=== PATIENT | female | born 1985 | race Caucasian/White ===

== ENCOUNTER 2021-05-06 23:31 | Emergency (ER) | payer MEDICAID, OTHER ==
[2021-05-06 23:35] VITALS: BP 143/83; PULSE 100
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
[2021-05-07] MEDS ORDERED: traMADol 50 MG Tab PO ONE (01:08)
== END 2021-05-07 01:10 | disposition home or self-care (01) ==
LOC: LL.ED 23:31
DX: S01.412A Laceration without foreign body of left cheek and temporomandibular area, initial encounter (principal); S63.502A Unspecified sprain of left wrist, initial encounter; I10 Essential (primary) hypertension; E66.9 Obesity, unspecified; Z88.8 Allergy status to other drugs, medicaments and biological substances; Z68.42 Body mass index [BMI] 45.0-49.9, adult; W18.39XA Other fall on same level, initial encounter
CPT/HCPCS: 12011; 36415; 70450; 73110; 84703; 99284; A9270; 99282

== ENCOUNTER 2021-06-02 01:45 | Emergency (ER) | payer MEDICAID ==
[2021-06-02 01:58] VITALS: BP 155/83; PULSE 118
[2021-06-02] MEDS ORDERED: Amoxicillin/Clavulanate K 875-125 MG Tab PO ONE (02:04)
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
--- NOTE | 2021-06-02 03:23 | PCM.EKG ---
#1 Interpretation EKG Date: 06/02/21 Time: 03:12 Rhythm: NSR Rate (Beats/Min): 83 Hunter: Normal P-Wave: Present QRS: Normal ST-T: Normal QT: Normal Comparison: NA - No Prior EKG
== END 2021-06-02 02:20 | disposition home or self-care (01) ==
LOC: LL.ED 01:45
DX: S41.151A Open bite of right upper arm, initial encounter (principal); S00.83XA Contusion of other part of head, initial encounter; F10.120 Alcohol abuse with intoxication, uncomplicated; I10 Essential (primary) hypertension; E66.9 Obesity, unspecified; Z72.0 Tobacco use; Z88.1 Allergy status to other antibiotic agents; Z79.899 Other long term (current) drug therapy; Y04.1XXA Assault by human bite, initial encounter
CPT/HCPCS: 99284; A9270